=== PATIENT | male | born 1950 | race Caucasian/White ===

== ENCOUNTER 2019-01-16 15:44 | Emergency (ER) | payer MEDICARE ==
[~2019-01-16] VITALS: Ht 170.2 cm; Wt 94.0 kg
[~2019-01-16 15:44] MED LIST: CIPRO500 MG PO; GLIPIZIDE ER5 MG PO; HYDROCODONE-AP1 EAC6 PO
[2019-01-16] MEDS ORDERED: METFORMIN HCL500 MG PO (15:54)
[2019-01-16 16:19] LABS: ABSOLUTE BASOPHILS 0.1 thou/uL (0.0-0.2); ABSOLUTE EOSINOPHILS 0.2 thou/uL (0.0-0.7); ABSOLUTE LYMPHOCYTES 1.3 thou/uL (0.8-5.3); ABSOLUTE MONOCYTES 0.5 thou/uL (0.0-1.2); ABSOLUTE NEUTROPHILS 2.8 thou/uL (1.6-8.1); BASOPHILS 1.6 %; EOSINOPHILS 3.5 %; HEMATOCRIT 45.6 % (42.0-52.0); HEMOGLOBIN 16.2 gm/dL (14.0-18.0); MCH 32.1 pg (26.0-34.0); MCHC 35.6 g/dL (28.0-37.0); MCV 90.1 fL (80.0-100.0); MONOCYTES 9.4 %; MPV 9.7 fl. (7.2-11.1); NUCLEATED RBCS 0 /100WBC; PLATELET COUNT* 239 thou/uL (150-400); POLYS 57.5 %; RBC 5.06 mil/uL (4.50-6.00); RDW-CV 12.9 % (10.5-14.5); WBC 4.8 thou/uL (4.0-11.0)
[2019-01-16 16:31] LABS: APTT 23.5 Seconds (25.0-31.3); INR 0.9; PROTIME 9.4 Seconds (9.20-11.50)
[2019-01-16 16:47] LABS: URINE BILIRUBIN NEGATIVE (Negative); URINE BLOOD TRACE (Negative); URINE CLARITY CLEAR; URINE COLOR YELLOW; URINE GLUCOSE-RANDOM 2+ (Negative); URINE KETONES NEGATIVE (Negative); URINE LEUKOCYTES-REFLEX NEGATIVE (Negative); URINE NITRITE-REFLEX NEGATIVE (Negative); URINE PROTEIN NEGATIVE (Negative); URINE SPECIFIC GRAVITY 1.025 (1.005-1.030); URINE UROBILINOGEN 0.2 E.U./dl (0.2-1.0)
[2019-01-16 17:01] LABS: ANION GAP 11 mmol/L (7-16); BUN 22 mg/dL (7-18); CALCIUM 8.5 mg/dL (8.5-10.1); CHLORIDE 104 mmol/L (98-107); CO2 25 mmol/L (21-32); CREATININE 1.4 mg/dL (0.6-1.3); GLUCOSE 232 mg/dL (70-99); POTASSIUM 4.1 mmol/L (3.5-5.1); SODIUM 140 mmol/L (136-145); TROPONIN-I LEVEL <0.06 ng/mL (<0.06)
[2019-01-16 17:12] LABS: ALBUMIN 3.6 g/dL (3.4-5.0); ALKALINE PHOSPHATASE 83 U/L (46-116); NT-PRO BRAIN NAT PEPTIDE 38 pg/mL (<300); SGOT 19 U/L (15-37); SGPT 22 U/L (30-65); TOTAL BILIRUBIN 0.3 mg/dL (<0.1-1.0); TOTAL PROTEIN 7.1 g/dL (6.4-8.2)
[2019-01-16 17:45] VITALS: BP 128/73
--- NOTE | 2019-01-17 15:11 | EKG ---
[place] [address] ELECTROCARDIOGRAM REPORT Name: ROSAMARIAKRYSTALSlimeWOODY Naveen Room: [facility]#: [id number] Admission: 01/16/19 Attend Phys: Discharge: 01/16/19 Date of : 54 Report #: [id number] THIS REPORT FOR: //name// [facility] ED Test Date: 2019-01-16 Test Time: 15:52:48 Pat Name: WOODY MORRISON Department: Room: Gender: M Supervisor Reclamation: ELVIN : 1950 Requested By: Raymond Rivera Order Number: [id number] MD: Rod Stephens Measurements Intervals Vaughan Rate: 68 P: 11 PA: 163 QRS: -7 QRSD: 108 T: 7 QT: 383 QTc: 408 Interpretive Statements Sinus rhythm Borderline T abnormalities, inferior leads Compared to ECG 05/26/2015 11:59:39 no change Electronically Signed On 01-17-2019 15:11:15 CDT by Rod Stephens [email or web address] <ELECTRONICALLY SIGNED> By: Rod Stephens MD, [facility] 01/17/19 1511 D: 03/1551 53 Rod Stephens MD, FACC /EPI
== END 2019-01-16 17:45 | disposition home or self-care (01) ==
LOC: M.ERS 15:44
PROVIDERS: Family Medicine
DX: R42 Dizziness and giddiness (principal); E11.9 Type 2 diabetes mellitus without complications; Z88.0 Allergy status to penicillin; Z88.6 Allergy status to analgesic agent; Z87.442 Personal history of urinary calculi

== ENCOUNTER 2020-10-31 02:51 | Emergency (ER) | payer MEDICARE ==
[~2020-10-31] VITALS: Ht 172.7 cm; Wt 84.8 kg
[~2020-10-31 02:51] MED LIST changes: +METFORMIN HCL500 MG PO
[2020-10-31 03:10] LABS: HEMATOCRIT 42.6 % (42.0-52.0); HEMOGLOBIN 14.6 gm/dL (14.0-18.0); MCH 30.4 pg (26.0-34.0); MCHC 34.3 g/dL (28.0-37.0); MCV 88.6 fL (80.0-100.0); MPV 8.5 fl. (7.2-11.1); NUCLEATED RBCS 0 /100WBC; PLATELET COUNT* 403 thou/uL (150-400); RDW-CV 12.3 % (10.5-14.5); WBC 9.3 thou/uL (4.0-11.0)
[2020-10-31 03:29] LABS: URINE BILIRUBIN NEGATIVE (Negative); URINE BLOOD 3+ (Negative); URINE CLARITY CLEAR; URINE COLOR YELLOW; URINE GLUCOSE-RANDOM 3+ (Negative); URINE KETONES 1+ (Negative); URINE LEUKOCYTES-REFLEX NEGATIVE (Negative); URINE NITRITE-REFLEX NEGATIVE (Negative); URINE PROTEIN NEGATIVE (Negative); URINE UROBILINOGEN 0.2 E.U./dl (0.2-1.0)
[2020-10-31 03:35] LABS: CALCIUM 8.6 mg/dL (8.5-10.1); CREATININE 1.6 mg/dL (0.6-1.3); POTASSIUM 4.4 mmol/L (3.5-5.1)
[2020-10-31 03:42] LABS: ALBUMIN 2.6 g/dL (3.4-5.0); TOTAL BILIRUBIN 0.5 mg/dL (<0.1-1.0); TOTAL PROTEIN 6.9 g/dL (6.4-8.2)
[2020-10-31 04:32] LABS: CASTS None Seen /LPF (None Seen); SQUAMOUS 0-3 Few /LPF (0-3)
[2020-10-31 04:33] LABS: BACTERIA-REFLEX None Seen /HPF (None Seen); CRYSTALS None Seen /LPF (None Seen); URINE WBC-REFLEX None Seen /HPF (0-5)
[2020-10-31 05:16] LABS: ABSOLUTE BASOPHILS 0.3 thou/uL (0.0-0.2); ABSOLUTE LYMPHOCYTES 1.1 thou/uL (0.8-5.3); ABSOLUTE MONOCYTES 0.4 thou/uL (0.0-1.2); ABSOLUTE NEUTROPHILS 7.5 thou/uL (1.6-8.1)
[2020-10-31 05:19] LABS: PLATELET ESTIMATE ADEQUATE
[2020-10-31] MEDS ORDERED: OXYCODON-ACETA1 EAC1 PO (05:51)
[2020-10-31] MEDS ORDERED: ZOFRAN ODT4 MG PO (05:51)
[2020-10-31] MEDS ORDERED: FLOMAX0.4 MG PO (05:51)
[2020-10-31 06:06] VITALS: BP 169/78
== END 2020-10-31 06:07 | disposition home or self-care (01) ==
LOC: M.ERS 02:51
PROVIDERS: Emergency Medicine
DX: N20.0 Calculus of kidney (principal); E11.9 Type 2 diabetes mellitus without complications; Z88.0 Allergy status to penicillin; Z88.6 Allergy status to analgesic agent; Z20.828 Contact with and (suspected) exposure to other viral communicable diseases